=== PATIENT | female | born 1930 | race Caucasian/White ===

== ENCOUNTER 2018-07-24 15:01 | Emergency (ER) | payer SELFPAY ==
[~2018-07-24] VITALS: Ht 149.9 cm; Wt 55.9 kg
[2018-07-24 16:08] LABS: BASOPHILS # (AUTO) 0.06 x10^3/uL (0-0.1); BASOPHILS % (AUTO) 1 % (0-1); EOSINOPHILS # (AUTO) 0.15 x10^3/uL (0-0.4); EOSINOPHILS % (AUTO) 2 % (1-7); LYMPHOCYTES # (AUTO) 1.74 x10^3/uL (1-3.4); LYMPHOCYTES % (AUTO) 23 % (22-44); MD NO; MEAN CORPUSCULAR HEMOGLOBIN 30.9 pg (27.0-34.8); MEAN CORPUSCULAR HGB CONC 34.1 g/dL (32.4-35.8); MEAN CORPUSCULAR VOLUME 90.6 fL (80-100); MONOCYTES # (AUTO) 0.63 x10^3/uL (0.2-0.8); MONOCYTES % (AUTO) 9 % (2-9); NEUTROPHILS # (AUTO) 4.85 x10^3/uL (1.8-6.8); NEUTROPHILS % (AUTO) 65 % (42-75); PLATELET COUNT 243 x10^3/uL (130-400); RED BLOOD COUNT 4.51 x10^6/uL (3.82-5.3); RED CELL DISTRIBUTION WIDTH 13.7 % (9.6-15.2)
[2018-07-24 16:16] LABS: ALBUMIN 4.1 g/dL (3.4-5.0); ANION GAP 3 mmol/L (5-15); CALCIUM 9.1 mg/dL (8.5-10.1); CHLORIDE 105 mmol/L (98-107); CREATININE 0.72 mg/dL (0.55-1.02)
[2018-07-24 16:19] LABS: TROPONIN I < 0.015 ng/mL (0.000-0.045)
[2018-07-24 17:21] VITALS: BP 160/88
--- NOTE | 2018-07-24 19:12 | NUR ---
pt to room from lobby Addendum: 07/24/18 at 1914 by SIXTO NO ANSWER WHEN CALLED TO ROOM.
--- NOTE | 2018-07-24 19:33 | NUR ---
pt not in lobby
--- NOTE | 2018-07-24 19:51 | NUR ---
pt to called to room from lobby , dylan/jodee
== END 2018-07-24 19:53 | disposition left against medical advice (07) ==
LOC: ED 19:47
DX: R42 Dizziness and giddiness (principal); M54.2 Cervicalgia
CPT/HCPCS: 36415; 71045; 80048; 82040; 84484; 85025; 93005; 99284